=== PATIENT | male | born 1975 | race Caucasian/White ===

== ENCOUNTER 2017-01-16 01:34 | Emergency (ER) | payer OTHER ==
[~2017-01-16] VITALS: Ht 172.7 cm; Wt 118.2 kg
[2017-01-16 01:41] VITALS: BP 145/67; TEMP 99
[2017-01-16 02:29] VITALS: PULSE 71
== END 2017-01-16 02:35 | disposition home or self-care (01) ==
LOC: COL.ER 01:34
DX: M71.372 Other bursal cyst, left ankle and foot (principal)

== ENCOUNTER 2018-04-17 16:49 | Emergency (ER) | payer OTHER ==
[~2018-04-17] VITALS: Ht 172.7 cm; Wt 113.6 kg
[2018-04-17 16:56] VITALS: BP 123/69
[2018-04-17] MEDS ORDERED: GLUCOPHAGE XR500 M1 PO (17:14)
[2018-04-17] MEDS ORDERED: D-2000 90 MG-201 TAB PO (17:15)
[2018-04-17] MEDS ORDERED: PRINIVIL10 MG PO (17:15)
[2018-04-17] MEDS ORDERED: TYLENOL 500MG500 MG PO (17:15)
[2018-04-17 17:33] LABS: BASO % 0.6 % (0.0-2.0); GRAN # 3.6 (1.4-6.5); GRAN % 76.3 % (42.2-75.2); HEMATOCRIT 47.5 % (42.0-52.0); HEMOGLOBIN 16.4 g/dl (13.5-18.0); LYMPH # 0.8 (1.2-3.4); MEAN CELL VOLUME 78 fl (80.0-100.0); MEAN CORPUSCULAR HEMOGLOBIN 27 pg (27.0-31.0); MEAN CORPUSCULAR HGB CONC 35 g/dl (33.0-37.0); MEAN PLATELET VOLUME 9.3 fl (7.4-10.4); MONO # 0.3 (0.1-0.6); MONO % 6.3 % (1.7-9.3); PLATELET COUNT 177 K/mm3 (130-400); RED BLOOD COUNT 6.07 M/mm3 (4.20-5.60); REDCELL DISTRIBUTION WIDTH-CV 12.8 % (11.5-14.5)
[2018-04-17 17:44] LABS: ALBUMIN 4.5 gm/dL (3.5-5.0); C-REACTIVE PROTEIN 3.4 mg/dL (0.0-0.9); CALCIUM 9.1 mg/dL (8.4-10.2); CREATININE, serum 1.04 mg/dL (0.66-1.25); TOTAL PROTEIN 7.9 gm/dL (6.4-8.2)
[2018-04-17 18:00] VITALS: TEMP 99.3
[2018-04-17 18:04] LABS: COLLECTION METHOD CLEAN CATCH
[2018-04-17 18:14] LABS: PH 6 (5-8); SQUAMOUS EPITHELIAL 0-2 /hpf; URINE APPEARANCE Clear; URINE BACTERIA None Seen /hpf; URINE BILIRUBIN Negative (NEGATIVE); URINE BLOOD Negative (NEGATIVE); URINE COLOR Straw; URINE GLUCOSE Negative (NEGATIVE); URINE KETONE Negative (NEGATIVE); URINE LEUKOCYTE ESTERASE Negative (NEGATIVE); URINE NITRATE Negative (NEGATIVE); URINE PROTEIN(semi-quant) Negative (NEGATIVE); URINE RBC None Seen /hpf; URINE UROBILINOGEN Negative (NEGATIVE)
[2018-04-17] MEDS ORDERED: DOXYCYCLINE 10100 MG PO (18:26)
[2018-04-17 18:40] VITALS: PULSE 78
== END 2018-04-17 18:40 | disposition home or self-care (01) ==
LOC: COL.ER 16:49
PROVIDERS: Emergency Medicine
DX: J40 Bronchitis, not specified as acute or chronic (principal); R50.9 Fever, unspecified; E11.9 Type 2 diabetes mellitus without complications; I10 Essential (primary) hypertension; F17.220 Nicotine dependence, chewing tobacco, uncomplicated; Z79.84 Long term (current) use of oral hypoglycemic drugs
CPT/HCPCS: J7030

== ENCOUNTER 2019-05-13 03:01 | Emergency (ER) | payer OTHER ==
[~2019-05-13] VITALS: Ht 172.7 cm; Wt 109.1 kg
[~2019-05-13 03:01] MED LIST: D-2000 90 MG-201 TAB PO; DOXYCYCLINE 10100 MG PO; GLUCOPHAGE XR500 M1 PO; PRINIVIL10 MG PO; TYLENOL 500MG500 MG PO
[2019-05-13 03:11] VITALS: BP 135/79; TEMP 98.6
[2019-05-13] MEDS ORDERED: PRILOSEC 20MG20 MG PO (03:17)
[2019-05-13] MEDS ORDERED: TESSALON P100 MG/CAP PO (04:42)
[2019-05-13] MEDS ORDERED: ZITHROMAX Z PA250 MG PO (04:42)
[2019-05-13 04:50] VITALS: PULSE 80
== END 2019-05-13 03:40 | disposition home or self-care (01) ==
LOC: COL.ER 03:01
DX: J06.9 Acute upper respiratory infection, unspecified (principal); I10 Essential (primary) hypertension; E11.9 Type 2 diabetes mellitus without complications; Z87.891 Personal history of nicotine dependence

== ENCOUNTER → 2019-08-14 | Outpatient (CLI) | payer OTHER ==
[~2019-08-14] MED LIST changes: +PRILOSEC 20MG20 MG PO; +TESSALON P100 MG/CAP PO; +ZITHROMAX Z PA250 MG PO
== END ==
LOC: COL.RAD 09:47
DX: R11.0 Nausea (principal); R19.7 Diarrhea, unspecified; R10.9 Unspecified abdominal pain; R12 Heartburn